=== PATIENT | female | born 1955 | race Caucasian/White ===

== ENCOUNTER 2018-09-01 07:46 | Day surgery (SDC) | payer OTHER ==
[2018-09-01] MEDS ORDERED: Propofol 200 MG/20 ML SDV IV ONE (07:47)
[2018-09-01] MEDS ORDERED: Lactated Ringers 1,000 ML IV ONE (07:47)
[2018-09-01] MEDS ORDERED: Glycopyrrolate 0.2 MG/ML 5 ML MDV IV ONE (07:47)
[2018-09-01] MEDS ORDERED: Lactated Ringers 1,000 ML IV SCH (08:15)
[2018-09-01] MEDS ORDERED: Sodium Chloride 0.9% 10 ML Syringe FLUSH PRN (08:15)
--- NOTE | 2018-09-01 09:57 | PCM.OPNOTE ---
- General Post-Op/Procedure Note Date of Surgery/Procedure: 09/01/18 Operative Procedure(s): C scope Findings: nl exam Pre Op Diagnosis: screening Post-Op Diagnosis: nl exam Anesthesia Technique: MAC Primary Surgeon: Antoine Carmona Anesthesia Provider: Tommy Jones Pathology: normal exam Complications: None Condition: Good Free Text/Narrative:: see dictation
--- NOTE | 2018-09-01 14:30 | OR ---
DATE OF OPERATION: 09/01/2018 SURGEON: Antoine Carmona MD PROCEDURE PERFORMED: Colonoscopy with cold forceps biopsy. PREOPERATIVE DIAGNOSIS: Routine colon cancer screening. POSTOPERATIVE DIAGNOSIS: Normal colon. INDICATIONS FOR PROCEDURE: This is a 62-year-old white female who presents for her 10-year colonoscopy. DESCRIPTION OF OPERATION: After an excellent IV sedation was administered, digital rectal exam was performed. No marked abnormality was noted. The flexible colonoscope was inserted and advanced to the cecum without difficulty. The prep was excellent. The following findings were noted. Ascending colon, unremarkable. Transverse colon, unremarkable. Descending colon, unremarkable. Sigmoid and rectum, unremarkable. Colon was deflated. The scope was removed. The patient tolerated the procedure well, was taken to recovery in good condition. RECOMMENDATIONS: Repeat colonoscopy in 10 years. /[id number] /MODL
== END 2018-09-01 11:02 | disposition home or self-care (01) ==
LOC: FB.SDS 07:46
PROVIDERS: ATTEND Surgery
DX: Z12.11 Encounter for screening for malignant neoplasm of colon (principal); E03.9 Hypothyroidism, unspecified; K21.9 Gastro-esophageal reflux disease without esophagitis; H43.811 Vitreous degeneration, right eye; H50.22 Vertical strabismus, left eye; Z79.899 Other long term (current) drug therapy
CPT/HCPCS: 00812; 45378; J2704; J3490; J7120

== ENCOUNTER 2021-10-22 06:14 | Day surgery (SDC) | payer MEDICARE, OTHER ==
[2021-10-22] MEDS ORDERED: Propofol 200 MG/20 ML SDV IV ONE (06:15)
[2021-10-22] MEDS ORDERED: Sodium Chloride 0.9% 10 ML Syringe FLUSH PRN (06:15)
[2021-10-22] MEDS ORDERED: Lidocaine 2% 5 ML SDV INJECT ONE (06:15)
[2021-10-22] MEDS ORDERED: Midazolam 1 MG/ML 2 ML SDV IV ONE (06:15)
[2021-10-22] MEDS ORDERED: Lactated Ringers 1,000 ML IV SCH (06:15)
== END 2021-10-22 08:38 | disposition home or self-care (01) ==
LOC: FB.SDS 06:14
PROVIDERS: ATTEND Surgery
DX: K29.50 Unspecified chronic gastritis without bleeding (principal); K21.00 Gastro-esophageal reflux disease with esophagitis, without bleeding; K31.89 Other diseases of stomach and duodenum; I10 Essential (primary) hypertension; E03.9 Hypothyroidism, unspecified; Z79.899 Other long term (current) drug therapy
CPT/HCPCS: 00731; 43239; 88305; 88313; J2250; J2704; J7120